=== PATIENT | male | born 1965 | race Caucasian/White ===

== ENCOUNTER 2017-06-11 20:00 | Inpatient (IN) | payer OTHER ==
[~2017-06-11] VITALS: Ht 172.7 cm; Wt 80.4 kg
--- NOTE | ~2017-06-11 | HC ---
[facility] [place] [place] [address] CONSULTATION Name: GEMA DAVE Luis Room #: 220-P [facility] IN .R.#: [id number] Admission: 06/11/17 Attend Phys: Jonah Mares MD Discharge: 06/12/17 Date of : 63 Report #: [id number] THIS REPORT FOR: //name// CC: Jonah Mares FAM physician/PCP DATE OF SERVICE: 06/12/2017 PERSONAL PHYSICIAN: None on staff. CHIEF COMPLAINT: Right posterior calf wound. HISTORY OF PRESENT ILLNESS: This is a 51-year-old white male who presented to the Emergency Department yesterday for a traumatic wound to his right calf. The patient states that approximately 3 days prior, he had struck his calf on a piece of steel and initially did not think much about it. The patient, however, states over the next 3 days the patient had increased pain, swelling, redness and bloody drainage coming from the area. The patient attempted using heating pads without any relief from his symptoms. The patient stated the redness did get worse as did the tenderness which prompted him to come to the Emergency Department last evening. The patient was admitted for cellulitis to his right leg. The patient was started on IV antibiotics and states that as of today within 24 hours of the IV antibiotics, the patient's redness has nearly abated. The patient denies any other associated wounds. The patient states that at no point in time did he have fevers, chills, nausea, vomiting. The patient denies any other associated symptoms. The patient states he never any other wounds that he could not heal on his own in the past. PAST MEDICAL HISTORY: The patient states that he is essentially healthy and specifically denies any history of diabetes or recurrent skin infections. CURRENT MEDICATIONS: Essentially none besides ibuprofen. DRUG ALLERGIES: None. SOCIAL HISTORY: The patient states that he does smoke at least 1 pack a day for the past 35 years. The patient states he does not drink alcohol. The patient has used illicit drugs in the past, but it has been over 3 months since that has been used. FAMILY HISTORY: Not pertinent to current medical condition. REVIEW OF SYSTEMS: CONSTITUTIONAL: The patient denies fevers or chills. NEUROLOGIC: The patient denies numbness, tingling, weakness in arms or legs. EYES: No complaints. [address] [address] CONSULTATION Name: GEMA DAVE Room #: 220-P [facility] IN M.R.#: [id number] Admission: 06/11/17 Attend Phys: Jonah Mares MD Discharge: 06/12/17 Date of : 63 Report #: [id number] ENT: No complaints. CARDIAC: The patient denies chest pain, palpitations, peripheral edema. RESPIRATORY: The patient denies shortness of breath, cough, wheezes. GASTROINTESTINAL: The patient denies nausea, vomiting, abdominal pain. GENITOURINARY: The patient denies any complaints. MUSCULOSKELETAL: No complaints. SKIN: There is a hemorrhagic blister on the right posterior calf. PHYSICAL EXAMINATION: VITAL SIGNS: Temperature 36.4, pulse 80, respiration 18, BP 130/58. GENERAL: This is alert and oriented x 3, pleasant white male who is in absolutely no distress. HEENT: Normocephalic, atraumatic. Mucous membranes are somewhat dry. Dentition is poor. Pupils are round. Sclerae are white. NECK: Supple, nontender. HEART: Regular. LUNGS: Clear. ABDOMEN: Soft, nontender. EXTREMITIES: The patient moves all extremities without difficulty. Evaluation of right posterior calf shows a traumatic wound with a hemorrhagic blister that is otherwise intact. The surrounding area has some mild erythema and minimal warmth. It is somewhat tender to palpation. The area that had been marked in the previous evening in regards to the erythema has now totally abated erythema. There is tenderness down the rest of the calf itself. There is no swelling of the calf. Distal pulses are 2+ and symmetric on both lower extremities as well as dorsalis pedis and posterior tibial. There are no signs of inflammation or fluctuation around the traumatic wound itself. NEUROLOGIC: Cranial nerves 2-12 grossly intact. Motor and sensory grossly intact. LABORATORY VALUES: White count 8.0, hemoglobin 14.4. BUN 21, creatinine 0.8. WOUND CARE COURSE: I spoke at length with the patient and stated at this time, the cellulitis seems to have resolved. The patient is requesting to be discharged to home on his oral antibiotics. Infectious Disease has been consulted and will see him shortly. At this time, I think from wound care point of view, the patient could be discharged to home with followup outpatient care. We will write him a prescription for Bactroban to use with a gauze dressing, change just once or twice daily, attempt to leave the hemorrhagic blister intact. The patient also will have an Colt wrap placed over the right calf area to hold the dressings in place. The patient was given one of my cards to follow up with the next 10-14 days. The patient also encouraged to eat a high protein diet to assist in the healing. IMPRESSION: 1. Traumatic wound to the right calf with hemorrhagic blister and resolving [address] [address] CONSULTATION Name: GEMA DAVE Room #: 220-P [facility] IN ..#: [id number] Admission: 06/11/17 Attend Phys: Jonah Mares MD Discharge: 06/12/17 Date of : 63 Report #: [id number] cellulitis. 2. Tobaccoism. PLAN: Described at length as above. I answered questions to the patient and his family and encouraged to follow up with my clinic. <ELECTRONICALLY SIGNED> By: Elton Boswell MD 06/14/17 [id number] [id number] Elton Boswell MD /nt
[~2017-06-11 20:00] MED LIST: AMOXICILLIN875 MG PO; IBUPROFEN 600600 M1 PO; KEFLEX500 MG PO; LORTABELXR PO; NOHOMEMEDICATIONS; NORCO 5-325 TA1 EACH PO; PENICILLIN VK500 M1 PO; PREDNISONE 5 MG5 M1 PO; PROAIR HFA8.5 GM IH; VICODIN 5-5001 EACH PO
[2017-06-11 20:23] VITALS: BP 128/86
[2017-06-11] MEDS ORDERED: IBUPROFEN 200200 M1 PO (20:31)
[2017-06-11 21:04] LABS: HEMATOCRIT 43.2 % (42.0-52.0); HEMOGLOBIN 14.7 gm/dL (14.0-18.0); MCH 31.3 pg (26.0-34.0); MCHC 34.1 g/dL (28.0-37.0); MCV 91.7 fL (80.0-100.0); PLATELET COUNT 273 thou/uL (150-400); RBC 4.71 mil/uL (4.50-6.00); RDW 13.8 % (10.5-14.5); WBC 13.2 thou/uL (4.0-11.0)
[2017-06-11 21:20] LABS: CALCIUM 8.9 mg/dL (8.5-10.1); POTASSIUM 3.9 mmol/L (3.5-5.1)
[2017-06-11 21:25] LABS: ABSOLUTE NEUTROPHILS 8.3 thou/uL (1.4-8.2)
[2017-06-11 21:58] VITALS: BP 128/86
[2017-06-11 22:35] VITALS: BP 128/86
[2017-06-11 23:15] VITALS: BP 118/82
[2017-06-12 03:17] LABS: AMP/METHAMP POSITIVE (Negative); BARBITURATES Negative (Negative); BENZODIAZEPINES POSITIVE (Negative); COCAINE Negative (Negative); METHADONE Negative (Negative); OPIATES POSITIVE (Negative); PCP Negative (Negative)
[2017-06-12 04:00] VITALS: BP 112/72
[2017-06-12 09:29] LABS: HEMATOCRIT 43.1 % (42.0-52.0); HEMOGLOBIN 14.4 gm/dL (14.0-18.0); MCH 30.8 pg (26.0-34.0); MCHC 33.5 g/dL (28.0-37.0); RBC 4.69 mil/uL (4.50-6.00)
[2017-06-12 09:35] VITALS: BP 130/58
[2017-06-12 09:35] LABS: CALCIUM 8.9 mg/dL (8.5-10.1); CREATININE 0.8 mg/dL (0.7-1.3); POTASSIUM 3.5 mmol/L (3.5-5.1)
== END 2017-06-12 14:48 | disposition left against medical advice (07) | DRG 603 ==
LOC: ER 20:00 → EROBS 21:41 → 4N 22:36 → ENTRNSPT 06-12 11:03 → EDTRNSPTSTS 06-12 11:06 → SICU 06-12 11:15
PROVIDERS: Nurse Practitioner Acute Care; Physician Assistant
DX: L03.113 Cellulitis of right upper limb (principal); F17.210 Nicotine dependence, cigarettes, uncomplicated; Z28.21 Immunization not carried out because of patient refusal
CPT/HCPCS: 10091